=== PATIENT | male | born 1990 | race Two or more races ===

== ENCOUNTER 2021-02-14 15:53 | Emergency (ER) | payer OTHER ==
[2021-02-14 16:07] VITALS: BP 128/67
--- NOTE | 2021-02-14 16:15 | ED Physician Documentation ---
History of Present Illness - Stated complaint Stated Complaint: COUGH,CP,CONGESTION - Chief complaint Chief Complaint: General - History obtained from History obtained from: Patient - History of Present Illness Timing: Today Pain level max: 0 Pain level now: 0 - Additonal information Additional information: 30-year-old male, [employer] sent in for a Covid test. He states that he has had mild cough and congestion. No fevers. No chills. He was exposed to someone who tested positive for Covid. Review of Systems Constitutional: denies: Fever Nose: reports: Congestion Respiratory: reports: Cough (mild, dry) GI: denies: Abdominal Pain, Nausea, Vomiting, Diarrhea Skin: denies: Rash PD PAST MEDICAL HISTORY - Past Medical History Past Medical History: No - Past Surgical History Past Surgical History: No - Present Medications Home Medications: Ambulatory Orders Medication Instructions Recorded Confirmed No Known Home Medications 02/14/21 02/14/21 - Allergies Allergies/Adverse Reactions: Allergies Allergy/AdvReac Type Severity Reaction Status Date / Time No Known Drug Allergies Allergy Verified 02/14/21 16:04 PD ED PE NORMAL - Vitals Vital signs reviewed: Yes - General General: Alert and oriented X 3, No acute distress - HEENT HEENT: Moist mucous membranes - Neck Neck: Supple, no meningeal sign - Cardiac Cardiac: RRR, Strong equal pulses - Respiratory Respiratory: No respiratory distress, Clear bilaterally - Derm Derm: Warm and dry - Neuro Neuro: Alert and oriented X 3 - Psych Psych: Normal mood, Normal affect Results - Vitals Vitals: Vital Signs - 24 hr 02/14/21 16:04 Temperature 37.0 C Heart Rate 85 Respiratory 19 Rate Blood Pressure 128/67 O2 Saturation 98 Oxygen O2 Source Room air PD MEDICAL DECISION MAKING - ED course Complexity details: considered differential, d/w patient ED course: Covid test performed. Patient is well-appearing, nontoxic. Afebrile. No hypoxia or respiratory distress. Patient counseled regarding signs and symptoms for which I believe and urgent re-evaluation would be necessary. Patient with good understanding of and agreement to plan and is comfortable going home at this time This document was made in part using voice recognition software. While efforts are made to proofread this document, sound alike and grammatical errors may occur. Departure - Departure Disposition: 01 Home, Self Care Clinical Impression: Viral syndrome Condition: Good Instructions: ED Viral Syndrome Follow-Up: Provider,Other [Primary Care Provider] - As Needed Comments: You have a Covid test pending. You need to self quarantine until the result is done and negative. The results should be done in 24-48 hours. We will call with a positive result, the fastest way to get a negative result for confirmation though is to go to the hospital website at [email or web address], click on the my [employer] tab and sign up for the patient portal. If any of your friends and/or family need to be tested, they can call the hospital at [phone] for an appointment to have their Covid test. Discharge Date/Time: 02/14/21 16:19
== END 2021-02-14 16:19 | disposition home or self-care (01) ==
LOC: ED 15:53
DX: U07.1 COVID-19 (principal); J06.9 Acute upper respiratory infection, unspecified
CPT/HCPCS: 99282; 99283

== ENCOUNTER 2021-05-04 11:01 | Emergency (ER) | payer OTHER ==
[2021-05-04 11:12] VITALS: BP 126/74
--- NOTE | 2021-05-04 11:30 | ED Physician Documentation ---
History of Present Illness - Stated complaint Stated Complaint: FLANK PX - Chief complaint Chief Complaint: Abd Pain - Additonal information Additional information: 30-year-old male presents emergency department for evaluation of acute sudden onset severe left flank pain that occurred just prior to arrival. Began and ended in the main left flank without radiation. No fevers or vomiting but he does endorse diaphoresis. History of renal colic about 5 years ago unsure which side. He reports mild dysuria this AM. With the exception of previous renal colic past medical history and surgical history is unremarkable. Pain has resolved without any intervention. Review of Systems Constitutional: denies: Fever, Chills Nose: reports: Reviewed and negative Throat: reports: Reviewed and negative Cardiac: reports: Reviewed and negative Respiratory: reports: Reviewed and negative GI: reports: Abdominal Pain. denies: Nausea, Vomiting, Constipation, Diarrhea : reports: Reviewed and negative Skin: reports: Reviewed and negative Musculoskeletal: reports: Reviewed and negative PD PAST MEDICAL HISTORY - Past Surgical History Past Surgical History: No - Present Medications Home Medications: Ambulatory Orders Medication Instructions Recorded Confirmed No Known Home Medications 02/14/21 02/14/21 - Allergies Allergies/Adverse Reactions: Allergies Allergy/AdvReac Type Severity Reaction Status Date / Time No Known Drug Allergies Allergy Verified 02/14/21 16:04 - Social History Does the pt smoke?: No Smoking Status: Never smoker PD ED PE NORMAL - General General: Alert and oriented X 3, No acute distress, Well developed/nourished - HEENT HEENT: Atraumatic, Moist mucous membranes - Neck Neck: Supple, no meningeal sign, No adenopathy - Cardiac Cardiac: RRR, No murmur, No gallop - Respiratory Respiratory: No respiratory distress, Clear bilaterally - Abdomen Abdomen: Normal bowel sounds, Soft, Non tender (mild left flank pain without guarding or rebound) - Back Back: No CVA TTP, No spinal TTP - Derm Derm: Normal color, Warm and dry, No rash - Extremities Extremities: No deformity - Neuro Neuro: Alert and oriented X 3, wine specialist 2-12 intact Eye Opening: Spontaneous Motor: Obeys Commands Verbal: Oriented GCS Score: 15 Results - Vitals Vitals: Vital Signs - 24 hr 05/04/21 11:10 Temperature 36.0 C L Heart Rate 74 Respiratory 18 Rate Blood Pressure 126/74 O2 Saturation 99 Oxygen O2 Source Room air - Labs Labs: Laboratory Tests 05/04/21 05/04/21 05/04/21 11:30 11:35 11:35 WBC 4.7 L RBC 4.72 Hgb 14.6 Hct 44.3 MCV 93.9 MCH 30.9 MCHC 33.0 RDW 12.9 Plt Count 190 MPV 9.5 Neut # (Auto) 3.6 Lymph # (Auto) 0.7 L [place] # (Auto) 0.4 Eos # (Auto) 0.0 Baso # (Auto) 0.0 Absolute Nucleated RBC 0.00 Nucleated RBC % 0.0 Sodium 135 Potassium 4.1 Chloride 100 L Carbon Dioxide 29 Anion Gap 6.0 BUN 13 Creatinine 0.9 Estimated GFR (MDRD) 99 Glucose 93 Calcium 9.1 Total Bilirubin 1.8 H AST 18 ALT 19 Alkaline Phosphatase 61 Total Protein 7.2 Albumin 4.7 Globulin 2.5 Albumin/Globulin Ratio 1.9 Lipase 35 Urine Color YELLOW Urine Clarity CLEAR Urine pH 6.0 Ur Specific Anderson >=1.030 H Urine Protein TRACE Urine Glucose (UA) NEGATIVE Urine Ketones NEGATIVE Urine Occult Blood MODERATE H Urine Nitrite NEGATIVE Urine Bilirubin NEGATIVE Urine Urobilinogen 0.2 (NORMAL) Ur Leukocyte Esterase NEGATIVE Urine RBC 0-5 Urine WBC 0-3 Ur Squamous Epith Cells FEW Squamous Urine Crystals 3-5 Calcium Oxalate Amorphous Sediment Few Urine Bacteria Few Urine Mucus Few Strands Ur Microscopic Review INDICATED Urine Culture Comments NOT INDICATED - Rads (name of study) CT abd wo Radiology: Final report received (3 mm Bladder calculus which may have recently passed into the bladder from the left renal collecting system given the provided history. Nonobstructing left upper pole calculus measuring 2 mm. No ureter calculus or evidence of obstructive uropathy) PD MEDICAL DECISION MAKING - ED course Complexity details: reviewed results, re-evaluated patient, considered differential, d/w patient ED course: 30-year-old male presents emergency department for evaluation of acute onset left flank pain that has resolved by the time he arrived to the ER. Remote history of renal colic about 5 years ago. Today's urine shows no signs of infection though there is hematuria. Screening labs and electrolytes are nonactionable. CT scan of the abdomen does show a 2 mm left upper pole kidney stone as well as a 3 mm bladder calculus likely representing a recently passed stone. Given the lack of obstruction or infection patient is advised close follow-up with [facility] where he may benefit from referral to urology. Will recommend ibuprofen 600 mg with food 2-3 times a day. Emergent return precautions were discussed for fevers worsening symptoms uncontrolled vomiting or pain. Departure - Departure Disposition: 01 Home, Self Care Clinical Impression: Bladder calculi, Kidney calculus Condition: Stable Record reviewed to determine appropriate education?: Yes Instructions: ED Stone Renal Passed Comments: Francisco you were seen today in the emergency department for sudden onset left flank pain. You do have a history of kidney stones. Today your urine does show blood in it but there is no signs of infection. The CT scan that we did does show a 3 mm bladder calculus which is typically small enough to pass. You also do have a 2 mm stone in your left kidney. Again this is typically small enough to pass. There are no signs of obstruction or swelling in the urinary system which is important. In general I recommend that you take ibuprofen 600 mg with food 2-3 times a day for pain. I would like you to discuss this ED visit with [facility]. You may benefit from further referral or evaluation to a urologist. If at any point you find that your symptoms are worsening, you develop fevers, have uncontrolled vomiting or pain then you are to return immediately to the ER for repeat evaluation.
[2021-05-04 11:39] LABS: BASOPHILS % (AUTO) 0.6 %; EOSINOPHILS % (AUTO) 0.4 %; HCT - HEMATOCRIT 44.3 % (42.0-52.0); HGB - HEMOGLOBIN 14.6 g/dL (14.0-18.0); LYMPHOCYTES # (AUTO) 0.7 10^3/uL (1.5-3.5); LYMPHOCYTES % (AUTO) 14.4 %; MEAN CORPUSCULAR HEMOGLOBIN 30.9 pg (27.0-31.0); MEAN CORPUSCULAR VOLUME 93.9 fL (80.0-94.0); MEAN PLATELET VOLUME 9.5 fL (7.4-11.4); MONOCYTES # (AUTO) 0.4 10^3/uL (0.0-1.0); MONOCYTES % (AUTO) 7.9 %; NEUTROPHILS # (AUTO) 3.6 10^3/uL (1.5-6.6); NEUTROPHILS % (AUTO) 76.3 %; PLT - PLATELET COUNT 190 10^3/uL (130-450); RED BLOOD COUNT 4.72 10^6/uL (4.70-6.10); RED CELL DISTRIBUTION WIDTH 12.9 % (12.0-15.0); WHITE BLOOD COUNT 4.7 x10^3/uL (4.8-10.8)
[2021-05-04 11:41] LABS: BILIRUBIN,URINE NEGATIVE (NEGATIVE); GLUCOSE, URINE (UA) NEGATIVE (NEGATIVE); KETONES,URINE (UA) NEGATIVE (NEGATIVE); LEUKOCYTE ESTERASE, URINE NEGATIVE (NEGATIVE); NITRITE,URINE NEGATIVE (NEGATIVE); OCCULT BLOOD,URINE MODERATE (NEGATIVE); PROTEIN,URINE TRACE mg/dL (NEGATIVE); UROBILINOGEN,URINE 0.2 (NORMAL) E.U./dL (NORMAL)
[2021-05-04 11:47] LABS: CLARITY,URINE CLEAR (CLEAR)
[2021-05-04 11:52] LABS: ALBUMIN 4.7 g/dL (3.2-5.5); ALBUMIN/GLOBULIN RATIO 1.9 (1.0-2.2); BILIRUBIN,TOTAL 1.8 mg/dL (0.2-1.0); CALCIUM 9.1 mg/dL (8.5-10.3); CREATININE 0.9 mg/dL (0.6-1.2); POTASSIUM 4.1 mmol/L (3.5-5.0); TOTAL PROTEIN 7.2 g/dL (6.7-8.2)
[2021-05-04 12:11] LABS: BACTERIA,URINE Few /HPF (None Seen); RBC,URINE 0-5 /HPF (0-5); SQUAMOUS EPITHELIAL CELL,UR FEW Squamous (<= Few); WBC,URINE 0-3 /HPF (0-3)
--- NOTE | 2021-05-04 12:11 | CT Report ---
PROCEDURE: Abdomen/Pelvis WO INDICATIONS: left flank pain; ? renal colic TECHNIQUE: Noncontrast 5 mm thick sections acquired from the diaphragms to the symphysis. 5 mm coronal and sagi ttal reformats were then performed. For radiation dose reduction, the following was used: automated exposure control, adjustment of mA and/or kV according to patient size. COMPARISON: None. FINDINGS: There is an approximately 3 mm calculus in the central inferior urinary bladder (series 6 image 17 an d series 3 image 73). Urinary bladder is otherwise normal in appearance. There is no ureteral calculu s. Nonobstructing left upper pole calculus measuring 2 mm (series 6 image 29 and series 3 image 22). No additional renal calculus. There is no hydronephrosis, hydroureter, perinephric fat stranding. Grossly unremarkable unenhanced CT appearance of the remaining solid and hollow abdominal viscera wit h no additional significant abnormality in the abdomen or pelvis. Included portions of the lung bases are clear. No suspicious or acute osseous abnormality. IMPRESSION: Approximately 3 mm bladder calculus, which may have recently passed into the bladder from the left re nal collecting system given the provided history. Nonobstructing left upper pole calculus measuring 2 mm. No ureteral calculus or evidence of obstructive uropathy currently. Reviewed by: Neto Sawyer MD on 05/04/2021 12:09 PM PDT Approved by: Neto Sawyer MD on 05/04/2021 12:09 PM PDT Station ID: [id number]
[2021-05-04 12:12] LABS: AMORPHOUS SEDIMENT,UR Few /LPF; CRYSTALS,URINE 3-5 Calcium Oxalate /LPF; MUCUS,URINE Few Strands
== END 2021-05-04 12:36 | disposition home or self-care (01) ==
LOC: EDUNIT# → ED 11:01
DX: N21.0 Calculus in bladder (principal); N20.0 Calculus of kidney
CPT/HCPCS: 36415; 80053; 81001; 81003; 83690; 85025; 87086; 99282; 99284

== ENCOUNTER 2021-08-03 13:16 | Emergency (ER) | payer OTHER ==
[2021-08-03 13:32] VITALS: BP 117/71
--- NOTE | 2021-08-03 14:00 | ED Physician Documentation ---
PD HPI UPPER EXT INJURY - Stated complaint Stated Complaint: LEFT ARM PX - Chief complaint Chief Complaint: Ext Problem - History obtained from History obtained from: Patient - Additonal information Additional information: The patient comes to the emergency department chief complaint of left arm biceps pain for the last 7 days since straining his arm while Bowling. He states he felt the pain on a swing, but wanted to finish the game to complain. By the end, he noticed some bruising over his mid bicep and noticed that was painful with any flexion. Patient states pain is gotten a little better over the last week, but that whenever he lifts more than 5 pounds or even engages his biceps, he will feel a little spike in the pain. He states at baseline, the pain is a 1 but will go up to a 3-4 briefly while the arm is in use. He states certain movements do not seem to hurt it. Patient denies any other injuries. He has not noticed a difference in the contour of his bicep. He does have some pain shooting down into his hand sometimes. No other complaints at this time. Review of Systems Ten Systems: 10 systems reviewed and negative Constitutional: reports: Reviewed and negative Eyes: reports: Reviewed and negative Ears: reports: Reviewed and negative Nose: reports: Reviewed and negative Throat: reports: Reviewed and negative Cardiac: reports: Reviewed and negative Respiratory: reports: Reviewed and negative GI: reports: Reviewed and negative : reports: Reviewed and negative Skin: reports: Reviewed and negative Musculoskeletal: reports: Extremity pain Neurologic: reports: Reviewed and negative Psychiatric: reports: Reviewed and negative Endocrine: reports: Reviewed and negative Immunocompromised: reports: Reviewed and negative PD PAST MEDICAL HISTORY - Past Surgical History Past Surgical History: No - Present Medications Home Medications: Ambulatory Orders Medication Instructions Recorded Confirmed No Known Home Medications 02/14/21 08/03/21 - Allergies Allergies/Adverse Reactions: Allergies Allergy/AdvReac Type Severity Reaction Status Date / Time No Known Drug Allergies Allergy Verified 02/14/21 16:04 - Social History Does the pt smoke?: No Smoking Status: Never smoker PD ED PE NORMAL - Vitals Vital signs reviewed: Yes - General General: Alert and oriented X 3, No acute distress, Well developed/nourished - HEENT HEENT: Atraumatic, PERRL, EOMI, Moist mucous membranes - Cardiac Cardiac: Strong equal pulses - Respiratory Respiratory: No respiratory distress - Derm Derm: Normal color, Warm and dry, No rash - Extremities Extremities: No deformity, Normal ROM s pain, No edema, Other (Normal L biceps contour. Tendon is intact distally. No mass or fluctuance of the biceps muscle.) - Neuro Neuro: Alert and oriented X 3, No motor deficit, No sensory deficit - Psych Psych: Normal mood, Normal affect Results - Vitals Vitals: Vital Signs - 24 hr 08/03/21 13:31 Temperature 36.8 C Heart Rate 84 Respiratory 19 Rate Blood Pressure 117/71 O2 Saturation 98 Oxygen O2 Source Room air PD MEDICAL DECISION MAKING - ED course Complexity details: considered differential, d/w patient ED course: I discussed with the patient that I suspect a muscle strain of the belly of his left biceps. We discussed that it has only been a week and generally, these injuries take 3 to 4 weeks to heal. We have discussed follow-up to discuss MRI if pain is not noticeably better after the next couple of weeks. We have also discussed lifting limitations at work and the need to avoid any strenuous activities with his left upper extremity. Departure - Departure Disposition: 01 Home, Self Care Clinical Impression: Strain of biceps muscle Qualifiers: Encounter type: initial encounter Laterality: left Qualified Code(s): S46.212A - Strain of muscle, fascia and tendon of other parts of biceps, left arm, initial encounter Condition: Stable Instructions: ED Strain Muscle Ext Forms: Activity restrictions
== END 2021-08-03 14:12 | disposition home or self-care (01) ==
LOC: ED 13:16
DX: S46.212A Strain of muscle, fascia and tendon of other parts of biceps, left arm, initial encounter (principal); X58.XXXA Exposure to other specified factors, initial encounter; Y93.54 Activity, bowling
CPT/HCPCS: 99281; 99282